=== PATIENT | female | born 1970 | race Caucasian/White ===

== ENCOUNTER → 2018-12-10 | Outpatient (CLI) | payer OTHER | END | disposition home or self-care (01) | LOC: MA 08:56 | PROC: BH02ZZZ Plain Radiography of Bilateral Breasts (ICD-10-PCS; principal; 2018-12-10) | PROC: BH41ZZZ Ultrasonography of Left Breast (ICD-10-PCS; 2018-12-10) | DX: N64.4 Mastodynia (principal) | CPT/HCPCS: 76641; 77066 ==